=== PATIENT | male | born 1950 | race Caucasian/White ===

== ENCOUNTER 2016-09-25 18:38 | Emergency (ER) | payer OTHER, BC ==
[2016-09-25 18:47] VITALS: BP 140/67
[2016-09-25] MEDS ORDERED: methylPREDNISolone 125 MG* 2 ML VIAL IM ONE (19:01)
[2016-09-25] MEDS ORDERED: diPHENhydraMINE PO* 50 MG PO ONE (19:02)
[2016-09-25] MEDS ORDERED: Famotidine TAB* 20 MG PO ONE (19:02)
--- NOTE | 2016-09-25 19:51 | UC ---
Skin Complaint HPI - HPI Summary HPI Summary: YELLOW JACKET STINGS TO RIGHT HAND TWO HOURS MILL HAND, WITH RIGHT HAND SWELLING. NO THROAT TIGHTNEING. NO SOB. NO CHEST PAIN. NO LIP SWELLING. FULL ROM IN RIGHT WRIST AND HAND. - History of Current Complaint Chief Complaint: UCAllergicReaction Time Seen by Provider: 09/25/16 18:39 Stated Complaint: YELLOW JACKET STING Hx Obtained From: Patient Onset/Duration: Sudden Onset, Lasting Hours, Still Present Skin Exposure Onset/Duration: Hours Ago Onset Severity: Mild Current Severity: Moderate Pain Intensity: 4 Pain Scale Used: 0-10 Numeric Location: Hand (Right) Character: Swelling, Pruritus, Redness Aggravating: Touch Alleviating: Nothing Associated Signs & Symptoms: Positive: Rash. Negative: Nausea, Vomiting, Fever , Chills, Cough, Wheezing, Chest Pain, Hoarseness, Throat Tightening, Syncope, Drainage, Tenderness, Red Streaks, Joint Swelling Related History: Insect Bite/Sting, Possible Reaction to: Insect - Allergy/Home Medications Allergies/Adverse Reactions: Allergies Allergy/AdvReac Type Severity Reaction Status Date / Time PETROLEUM BASED CHEMICAL Allergy Severe Rash Uncoded 09/14/15 21:44 RUST INHIBITOR CHEMICAL Allergy Severe Rash Uncoded 09/14/15 21:44 Home Medications: Home Medications Losartan TAB* [Cozaar TAB*] 50 mg PO DAILY 09/25/16 [History Confirmed 09/25/16] Review of Systems Constitutional: Negative Skin: Rash - RIGHT HAND Eyes: Negative ENT: Negative Respiratory: Negative Cardiovascular: Negative Gastrointestinal: Negative Genitourinary: Negative Motor: Negative Neurovascular: Negative Musculoskeletal: Negative Neurological: Negative Psychological: Negative All Other Systems Reviewed And Are Negative: Yes PMH/Surg Hx/FS Hx/Imm Hx Previously Healthy: Yes - Surgical History Surgical History: Yes Surgery Procedure, Year, and Place: DETACHED RETINA, MOLE REMOVAL - Family History Known Family History: Negative: Respiratory Disease - Social History Occupation: Employed Full-time Lives: With Family Alcohol Use: Occasionally Alcohol Amount: WINE Substance Use Type: None Smoking Status (MU): Never Smoked Tobacco Physical Exam Triage Information Reviewed: Yes Appearance: Well-Appearing, No Pain Distress, Well-Nourished Vital Signs: Initial Vital Signs Temp 97.9 F 09/25/16 18:43 Pulse 87 09/25/16 18:43 Resp 18 09/25/16 18:43 BP 140/67 09/25/16 18:43 Pulse Ox 99 09/25/16 18:43 Vital Signs Reviewed: Yes Eye Exam: Normal ENT Exam: Normal ENT: Positive: Normal ENT inspection, Hearing grossly normal, Pharynx normal, TMs normal Dental Exam: Normal Neck exam: Normal Neck: Positive: Supple, Nontender, No Lymphadenopathy Respiratory Exam: Normal Respiratory: Positive: Chest non-tender, Lungs clear, Normal breath sounds, No respiratory distress, No accessory muscle use Cardiovascular Exam: Normal Cardiovascular: Positive: RRR, No Murmur, Pulses Normal Abdominal Exam: Normal Musculoskeletal: Positive: Strength Intact, ROM Intact, Edema @ - RIGHT HAND Neurological Exam: Normal Psychological Exam: Normal Skin: Positive: rashes - ERYTHEMA EDEMA RIGHT HAND/ RIGHT THUMB Course/Dx - Differential Diagnoses - Skin Complaint Differential Diagnoses: Allergic Reaction, Anaphylaxis, Angioedema, Cellulitis, Contact Dermatitis, Systemic Illness, Tick Born Illness, Urticaria - Diagnoses Provider Diagnoses: LOCAL ALLERGIC REACTION RIGHT HAND, BEE STING Discharge - Discharge Plan Condition: Stable Disposition: HOME Patient Education Materials: Insect Bite or Sting (ED) Referrals: Katlin Fontanez MD [Medical Doctor] - Tristin Dill MD [Primary Care Provider] - Additional Instructions: BENADRYL PO 50mg BID FOR FIVE DAYS. Images Hands: 1 - EDEMA ERYTHEMA S/P BEE STING
== END 2016-09-25 19:35 | disposition home or self-care (01) ==
LOC: UCEAST 18:38
DX: T63.441A Toxic effect of venom of bees, accidental (unintentional), initial encounter (principal)
CPT/HCPCS: 96372; 99212; A9270-GY; G0463; J2930

== ENCOUNTER 2018-03-13 11:03 | Observation (INO) | payer OTHER, BC ==
[~2018-03-13 11:03] MED LIST: NS 0.9% 1000 ML* 1,000 ML IV ONE
--- NOTE | 2018-03-13 11:07 | ED ---
Neurological HPI - HPI Summary HPI Summary: This pt is a 67 y/o male [facility] c/o left sided weakness and tingling. Pt reports he was at a shelter green party when he stood up and suddenly he felt "unbalanced" at around 09:45. He states he was tripping over things and had left sided weakness and tingling. Pt notes weakness and tingling lasted for 15 seconds and spontaneously resolved. Per EMS, pt did walk to the ambulance without difficulty. Denies chest pain, SOB, nausea, vomiting. PMHx: HTN. FHx of CVA in his sister. Denies tobacco, drug, and alcohol use. - History of Current Complaint Stated Complaint: CODE FAITH Time Seen by Provider: 03/13/18 11:03 Hx Obtained From: Patient Onset/Duration: Sudden Onset, Resolved Timing: Sudden Onset Onset Severity: Moderate Current Severity: Mild Neurological Deficit Location: LUE, LLE Character: Weak, Numbness/Tingling, Motor Weakness Aggravating: Nothing Alleviating: Spontanious Resolution Associated Signs and Symptoms: Positive: Unsteady Gait - feeling unbalanced, Weakness. Negative: Pain, Nausea/Vomiting, Fever, Chest Pain, Shortness of Breath - Allergy/Home Medications Allergies/Adverse Reactions: Allergies Allergy/AdvReac Type Severity Reaction Status Date / Time PETROLEUM BASED CHEMICAL Allergy Severe Rash Uncoded 09/14/15 21:44 RUST INHIBITOR CHEMICAL Allergy Severe Rash Uncoded 09/14/15 21:44 PMH/Surg Hx/FS Hx/Imm Hx Endocrine/Hematology History: Denies: Hx Diabetes Cardiovascular History: Reports: Hx Hypertension Denies: Hx Coronary Artery Disease - Surgical History Surgery Procedure, Year, and Place: DETACHED RETINA, MOLE REMOVAL - Family History Known Family History: Negative: Respiratory Disease Family History: Sister with CVA. Liver CA. - Social History Alcohol Use: Occasionally Alcohol Amount: WINE Substance Use Type: Reports: None Smoking Status (MU): Never Smoked Tobacco Review of Systems Negative: Fever, Chills Negative: Chest Pain Negative: Shortness Of Breath Negative: Vomiting, Nausea Positive: Weakness - on the left, Paresthesia - on the left All Other Systems Reviewed And Are Negative: Yes Physical Exam - Summary Physical Exam Summary: VITAL SIGNS: Reviewed. GENERAL: Patient is a well-developed and nourished male who is lying comfortable in the stretcher. Patient is not in any acute respiratory distress. HEAD AND FACE: No signs of trauma. No ecchymosis, hematomas or skull depressions. No sinus tenderness. EYES: PERRLA, EOMI x 2, No injected conjunctiva, no nystagmus. EARS: Hearing grossly intact. Ear canals and tympanic membranes are within normal limits. MOUTH: Oropharynx within normal limits. NECK: Supple, trachea is midline, no adenopathy, no JVD, no carotid bruit, no c- spine tenderness, neck with full ROM. CHEST: Symmetric, no tenderness at palpation LUNGS: Clear to auscultation bilaterally. No wheezing or crackles. CVS: Regular rate and rhythm, S1 and S2 present, no murmurs or gallops appreciated. ABDOMEN: Soft, non-tender. No signs of distention. No rebound, no guarding, and no masses palpated. Bowel sounds are normal. EXTREMITIES: FROM in all major joints, no edema, no cyanosis or clubbing. NEURO: Alert and oriented x 3. Speech is normal and follows commands. Pt is ataxic. SKIN: Dry and warm GCS: 15 Triage Information Reviewed: Yes Vital Signs On Initial Exam: Initial Vitals Temp Pulse Resp BP Pulse Ox 97.8 F 89 19 159/79 99 03/13/18 11:04 03/13/18 11:04 03/13/18 11:04 03/13/18 11:04 03/13/18 11:04 Vital Signs Reviewed: Yes Diagnostics - Laboratory Result Diagrams: 03/14/18 05:53 03/14/18 05:53 Lab Statement: Any lab studies that have been ordered have been reviewed, and results considered in the medical decision making process. - Radiology Chest XR Radiology Interpretation Completed By: Radiologist Summary of Radiographic Findings: IMPRESSION: No active cardiopulmonary disease. Dr. Mondragon has reviewed this report. - CT Brain CT CT Interpretation Completed By: Radiologist Summary of CT Findings: IMPRESSION: No evidence for gross acute infarct, mass effect or hemorrhage. Dr. Mondragon has reviewed this report. - EKG 11:13 Cardiac Rate: NL - 90 bpm EKG Rhythm: Sinus Rhythm Summary of EKG Findings: No ST elevations. Normal axis. NIH Scale - NIH Scale Level of Consciousness: Alert/Keenly Responsive Ask Patient the Month and His/Her Age: Both Correct Ask Pt to Open/Close Eyes and Broadcast Traffic Coordinator/Release Non-Paretic Hand: Both Correctly Best Gaze (Only Horizontal Eye Movement): Normal Visual Field Testing: No Visual Loss Facial Paresis-Pt to Smile & Close Eyes or Grimace Symmetry: Normal/Symmetrical Motor Function - Right Arm: No Drift-Holds 10 Seconds Motor Function - Left Arm: No Drift-Holds 10 Seconds Motor Function - Right Leg: No Drift-Holds 10 Seconds Motor Function - Left Leg: No Drift-Holds 10 Seconds Limb Ataxia-Must be out of Proportion to Weakness Present: Present in One Limb Sensory (Use Pinprick to Test Arms/Legs/Trunk/Face): Normal Best Language (Describe Picture, Name Items): No Aphasia Dysarthria (Read Several Words): Normal Extinction and Inattention: No Abnormality Total Score: 1 Re-Evaluation - Re-Evaluation First Eval Re-Evaluation Time: 11:14 Change: Improved Comment: The tingling and numbness has resolved. Weakness resolved before arrival to the ED. Pt has ataxia with ambulation. Second Eval Re-Evaluation Time: 11:21 Comment: Dr. Ribeiro, neurologist at bedside. Waiting for radiologist to call for report. Course/Dx - Course Course Of Treatment: MD to door with pt at 10:59. CODE FAITH at 11:01. Brain CT ordered at 11:04. Pt to CT at 11:05. Pt returned from CT at 11:11. Dr. Ribeiro, neurologist, at bedside at 11:21. Radiologist, Dr. Dietz, called at 11:[address] At 12:20, Dr. Ribeiro, neurologist, recommends admission to hospitalist for TIA work up, pt is not a TPA candidate. Assessment/Plan: This pt is a 67 y/o male presenting to [facility] c/o left sided weakness and tingling. Pt reports he was at a shelter green party when he stood up and suddenly he felt "unbalanced" at around 09:45. He states he was tripping over things and had left sided weakness and tingling. Pt notes weakness and tingling lasted for 15 seconds and spontaneously resolved. Per EMS, pt did walk to the ambulance without difficulty. Denies chest pain, SOB, nausea, vomiting. PMHx: HTN. FHx of CVA in his sister. Denies tobacco, drug, and alcohol use. Blood work without any significant abnormality except for slight anemia, sodium 134, glucose 198. Urinalysis is negative for UTI. Head CT impression: Negative for an acute intracranial pathology. Dr. Ribeiro from neurology came and assessed the patient and he believes the patient had a TIA. Therefore the patient is not a candidate for TPA. He recommended for the patient to be admitted to the hospitalist services for a TIA workup. I discussed my physical exam, findings and test results with Dr. Chirinos from the hospitalist services and she agrees to admit patient to her services. Patient is hemodynamically stable, alert and oriented x 3. - Differential Dx Differential Diagnoses Neuro: Positive: Carbon Monoxide Poisoning, Transient Ischemic Attack - Diagnoses Provider Diagnoses: TIA (transient ischemic attack) During the Visit The Following Alert/Code Occurred: Code Faith - at 11:01 - Physician Notifications Discussed Care Of Patient With: Dru Dietz Time Discussed With Above Provider: 11:24 Instructed by Provider To: Other - , radiologist, calls to report negative CT. [12:20] Dr. Ribeiro, neurologist, recommends admission to the hospitalist for TIA work up. [12:29] I discussed pt care with Dr. Chirinos, hospitalist, who accepted the pt for admission. - Critical Care Time Critical Care Time: 30-74 min Discharge - Sign-Out/Discharge Documenting (check all that apply): Patient Departure - Admit to [facility] - Discharge Plan Condition: Stable Disposition: ADMITTED TO [facility] - Billing Disposition and Condition Condition: STABLE Disposition: Admitted to [facility] - Attestation Statements Document Initiated by Narda: Yes Documenting Scribe: Suni Hills Provider For Whom Juan Danielibe is Documenting (Include Credential): Geovani Mondragon MD Scribe Attestation: I, Suni Hills, scribed for Geovani Mondragon MD on 03/14/18 at 0717. Scribe Documentation Reviewed: Yes Provider Attestation: The documentation as recorded by the Suni holguin accurately reflects the service I personally performed and the decisions made by me, Geovani Mondragon MD Status of Scribe Document: Viewed
[2018-03-13 11:17] LABS: ABS Basophils 0.1 10^3/ul (0-0.2); ABS Eosinophils 0.1 10^3/ul (0-0.6); ABS Lymphocytes 2.2 10^3/ul (1.0-4.8); ABS Monocytes 0.5 10^3/ul (0-0.8); ABS Neutrophils 3.7 10^3/ul (1.5-7.7); ABS Nucleated RBC 0 10^3/ul; Eosinophil % 1.9 %; Hematocrit 39 % (42-52); Lymphocyte % 33.7 %; Mean Corpuscular HGB Conc 34 g/dl (31-36); Mean Corpuscular Hemoglobin 30 pg (27-31); Mean Corpuscular Volume 90 fL (80-94); Mean Platelet Volume 7.2 fL (7.4-10.4); Nucleated Red Blood Cells % 0; Platelet Count 211 10^3/ul (150-450); Red Blood Count 4.29 10^6/ul (4.00-5.40); Red Cell Distribution Width 13 % (10.5-15); White Blood Count 6.7 10^3/ul (3.5-10.8)
[2018-03-13 11:26] LABS: INR 0.92 (0.77-1.02)
[2018-03-13 11:27] LABS: Activated Partial Thrombo Time 27.3 seconds (26.0-36.3)
[2018-03-13 11:40] LABS: Albumin 4.2 g/dL (3.2-5.2); Albumin/Globulin Ratio 1.6 (1-3); BUN/Creatinine Ratio 20.8 (8-20); Calcium 9.3 mg/dL (8.6-10.3); EGFR Non-African American 69.7 (>60); Globulin 2.6 g/dL (2-4); HDL Cholesterol 48.8 mg/dL; Potassium 3.7 mmol/L (3.5-5.0); Total Bilirubin 0.6 mg/dL (0.2-1.0); Total Protein 6.8 g/dL (6.4-8.9)
[2018-03-13 12:20] LABS: Urine Appearance Clear; Urine Bilirubin Negative (Negative); Urine Blood Negative (Negative); Urine Color Yellow; Urine Glucose 1+(50 mg/dL) (Negative); Urine Ketones Negative (Negative); Urine Nitrite Negative (Negative); Urine Protein Negative (Negative); Urine Specific Gravity 1.018 (1.010-1.030); Urine Urobilinogen Negative (Negative)
[2018-03-13] MEDS ORDERED: Iohexol 350* (CONTRAST) 500 ML MDV IV ONE (13:03)
[2018-03-13] MEDS ORDERED: Ondansetron INJ* 2 MG/ML VIAL IV PRN (13:09)
[2018-03-13] MEDS ORDERED: Acetaminophen TAB* 325 MG PO PRN (13:09)
[2018-03-13 14:10] LABS: TSH (Thyroid Stimulating Horm) 1.53 mcIU/mL (0.34-5.60)
[2018-03-13 14:16] LABS: Free T4 0.84 ng/dL (0.61-1.12)
[2018-03-13 14:22] LABS: Folate 19.02 ng/mL (>3.99)
--- NOTE | 2018-03-13 14:59 | CONS ---
CC: Dr. Tristin Dill * CONSULTATION REPORT: DATE OF CONSULT: 03/13/18 PRIMARY CARE PHYSICIAN: Dr. Tristin Dill. LOCATION: He is a 67-year-old gentleman, currently in the ER. REASON FOR CONSULT: Code pro, left-sided symptoms. HISTORY OF PRESENT ILLNESS: Mr. Tidwell is a 67-year-old gentleman with a history of hypertension, on losartan at home, and possibly prediabetes, who was in his usual state of health when this morning at around 9:45, he developed acute onset of left-sided arm and leg weakness and tingling. He was at a senior living [facility] when the symptoms suddenly developed. He denied any headache at that time. He denied any facial symptoms. He notes that he does have a chronic "uneven smile." Denied any right-sided focal numbness, tingling, or weakness. At that time, he also denied any chest pain, shortness of breath, recent illnesses. He was brought to the ER for a code pro and arrived within the TPA window. I performed an NIH in the ER, he scored 0. Initially, it was reported that he was some trouble walking. When I stood him up after the NIH stroke scale was done, he was able to walk and ambulate and felt steady. In summary, his symptoms had resolved by the time I examined him in the ER a few minutes after arrival. CT of the head was reviewed. It showed no evidence of any hemorrhage, no evidence of acute infarct. The films were reviewed. Based on the fact that he developed these left-sided symptoms, he was being brought into the hospital for further evaluation and TIA/stroke workup. He denied any problems swallowing or speaking. No nausea or vomiting, no dizziness or ringing in his ears. PAST MEDICAL HISTORY: As noted above, hypertension and prediabetes. He is on losartan at home only. Does not take an aspirin regularly. PAST SURGICAL HISTORY: Detached retina on the right side. MEDICATIONS: Losartan 50 mg daily. ALLERGIES: To PETROLEUM-BASED CHEMICALS and RUST INHIBITOR CHEMICALS. SOCIAL HISTORY: He lives with his . He is a retired metallurgist. He denies any recent tobacco use. He did smoke a pipe in the distant past. He occasionally drinks wine. No illicit substance use. REVIEW OF SYSTEMS: His review of systems in 14-organ systems as noted above. No headache, vision changes, speech difficulties, swallowing difficulties, neck pain, back pain, musculoskeletal aches or pains, joint pain, nausea, vomiting, diarrhea, constipation, dysuria, frequency or urgency, chest pain, dyspnea on exertion or shortness of air, otherwise negative. PHYSICAL EXAM: Vital Signs: His temperature is 97.8, blood pressure 159/79 to 159/74, pulse rate of 87 to 89, respiratory rate of 11 to 19, O2 sats were 99% on room air. In general, he is a well-nourished, well-developed gentleman, lying in his hospital bed. His is at the bedside. He is very pleasant, well dressed, well groomed. HEENT: He is normocephalic, atraumatic. Sclerae are anicteric. He does have a surgical pupil on the right with some clouding of his pupil on the left. Mucous membranes are moist. Oropharynx is clear. Nares are patent. Neck is supple. No thyromegaly or carotid bruits. Chest: Clear to auscultation bilaterally. Cardiovascular: Regular rate and rhythm, without murmurs. Abdomen: Nontender, nondistended. Extremities: No clubbing, cyanosis, or edema. Skin is warm and dry. On neurologic exam, he is awake, alert, and oriented x3. His speech is fluent. There is no dysarthria. Repetition is intact. Recall of recent and remote events is intact. Vocabulary is intact. His mood is dysthymic. Affect is congruent. Cranial Nerves: Pupils: He has a surgical pupil on the right with no reactivity. His left pupil is reactive. Extraocular muscles are intact. Visual rios: He has vision loss in the right eye, otherwise intact. He has no nystagmus, no diplopia, no ptosis. Facial sensation is intact to light touch. His face, he appears to have a mild left lower facial droop, which he says is chronic. Hearing is intact to finger rub bilaterally. Palate raises symmetrically. Tongue is midline. Sternocleidomastoid, trapezius 5/5. His motor exam, he is 5 /5 throughout. There is no drift in all 4 extremities. Tone and bulk are both normal. Sensation is intact to light touch and pinprick. There is no double simultaneous extinguishing, no neglect. DTRs are 2+ and symmetric in the upper and lower extremities, with trace ankles. Eoatln-os-yylc, rapid alternating movements are intact. Raeu-dd-mjov is intact. No tremors are present, resting or intention. Gait is slightly wide based, but steady. He is able to walk backwards and forwards. He had some mild difficulty with tandem, but was able to do it. DIAGNOSTIC STUDIES/LAB DATA: Lab work includes a white count of 6.7, hemoglobin of 13, hematocrit of 39. INR of 0.92, PTT of 27.3. Sodium of 134, glucose of 198, lactic acid of 1.6. LDL cholesterol 91, HDL 48.8, triglycerides 129. Troponin 0.00. Urine, 1+ glucose. Imaging: He had an electrocardiogram, normal sinus rhythm. He had a chest x-ray. No active cardiopulmonary disease. He had a brain CT which showed no acute stroke or hemorrhage or mass effect. ASSESSMENT AND PLAN: Mr. Tidwell is a 67-year-old gentleman with a risk factor of hypertension and "prediabetes" who was in his usual state of health when he developed sudden onset of left arm and leg weakness and tingling at around 9:45 in the morning. He arrived within the TPA window, NIH stroke scale at the time of his arrival was 0. Initially reported ataxia, but he was able to ambulate on our examination. It was decided that he was not a TPA candidate, but that he likely suffered either a TIA or small stroke. The plan is to admit him for further workup including an MRI of the brain, CT angiogram of the head and neck , echocardiogram with bubble study. We will check some blood work, hydrate him , and keep his blood pressure on the high end for now. If there is no evidence of stroke, we can start to normalize his blood pressure. We would monitor him for diabetes, check a hemoglobin A1c. We would monitor him on telemetry for any evidence of atrial fibrillation and will likely get a 30-day monitor as an outpatient if no source of stroke is found. He has been started on an aspirin and Plavix. He will continue the Plavix for 30 days at which point he will continue on the aspirin. His goal LDL should be less than 70. At this point, I would start him on a statin medication as well. At this point, he is back to his baseline and we will watch him closely in the hospital. If his workup is negative, he can likely go home tomorrow with possible adjustments in his blood pressure medication. I will continue to follow him closely, make recommendations as necessary. Thank you for the opportunity to participate in the care of this very interesting patient. [id number]/[facility] #: [id number] IZZY
[2018-03-13] MEDS: Clopidogrel TAB* 75 MG PO SCH (15:28)
--- NOTE | 2018-03-13 16:39 | ECHO ---
Patient: ANGELI JOSE [facility] Rec#: [id number] : 1950 Date: 03/13/2018 Age: 67y Height: 168 cm / 66.1 in Weight: 78.1 kg / 172.1 lbs Sex: M BSA: 1.88 Room#: [facility] Admit Date#: 03/13/2018 Type: Inpatient Referring: Vj Sun Reading: Gal Mcguire MD Barrel Turner: Andreia Chou RDCS CC: Tristin Dill MD Transthoracic Echocardiogram Indication: TIA BP: 127/78 HR: 93 Rhythm: NSR Findings History: HTN, pipe/cigar smoker. Technical Comments: The study quality is fair. Completed at 1550. Left Ventricle: The left ventricular chamber size is normal. There is no left ventricular hypertrophy. Global left ventricular wall motion and contractility are within normal limits. Left ventricular systolic function is at the lower limits of normal. The estimated ejection fraction is 50-55%. There is septal flattening of the interventricular septum consistent with right ventricular volume or pressure overload. Abnormal left ventricular diastolic function is observed. Left Atrium: The left atrial chamber size is normal. Right Ventricle: Moderator Band present. The right ventricle is mildly dilated. The right ventricle wall thickness is mildly increased. The right ventricular global systolic function is normal. Right Atrium: The right atrium is mildly dilated. Interatrial septum appears intact without evidence of shunting. The bubble study is negative. A patent foramen ovale is not demonstrated with color Doppler and agitated contrast. Aortic Valve: The aortic valve is trileaflet. The aortic valve leaflets are mildly thickened. There is a trace of aortic regurgitation. There is no evidence of aortic stenosis. Mitral Valve: The mitral valve leaflets are mildly thickened. There is a trace of mitral regurgitation. There is no evidence of mitral stenosis. Tricuspid Valve: The tricuspid valve leaflets are normal. There is mild to moderate tricuspid regurgitation. The right ventricular systolic pressure is estimated at 37 mmHg. There is evidence of mild pulmonary hypertension. There is no tricuspid stenosis. Pulmonic Valve: The pulmonic valve appears normal. There is a trace pulmonic regurgitation. There is no pulmonic stenosis. Pericardium: There is no significant pericardial effusion. Aorta: There is no dilatation of the ascending aorta. There is no dilatation of the aortic arch. The aortic root is normal in size. Pulmonary Artery: The main pulmonary artery appears normal. Venous: The inferior vena cava appears normal in size. There is a greater than 50% respiratory change in the inferior vena cava dimension. Contrast: Intravenous agitated saline contrast was used to assess intracardiac shunting. Images 88 and 89. Summary: There was not any prior study for comparison. Conclusions Global left ventricular wall motion and contractility are within normal limits. Left ventricular systolic function is at the lower limits of normal. The estimated ejection fraction is 50-55%. There is septal flattening of the interventricular septum consistent with right ventricular volume or pressure overload. The right ventricle wall thickness is mildly increased. A patent foramen ovale is not demonstrated with color Doppler and agitated contrast. There is a trace of aortic regurgitation. There is no evidence of aortic stenosis. There is a trace of mitral regurgitation. There is mild to moderate tricuspid regurgitation. There is evidence of mild pulmonary hypertension. There is no significant pericardial effusion. Measurements Name Value Normal Range RVIDd (AP) 2D 3.2 cm (0.9 - 2.6) RVDdMajor (2D) 4.7 cm (2.2 - 4.4) RAd ISD 4CH 5.2 cm (3.4 - 4.9) RA (A4C)W 4.7 cm (2.9 - 4.6) IVSd (2D) 0.9 cm (0.6 - 1) LVPWd (2D) 1 cm (0.6 - 1) LVIDd (2D) 5.1 cm (3.6 - 5.4) LVIDs (2D) 3.1 cm - LV FS (2D) 38 % (25 - 45) Aortic Annulus 2.2 cm (1.4 - 2.6) Ao root diameter (2D) 3.3 cm (2.1 - 3.5) Ascending Ao 3.1 cm (2.1 - 3.4) Aortic arch 2.2 cm (1.8 - 3.4) LA dimension (AP) 2D 3.3 cm (2.3 - 3.8) LAd ISD 4CH 4.6 cm (2.9 - 5.3) LA ISD 4CH W 4.1 cm (2.5 - 4.5) Name Value Normal Range LA ESV BP (A/L) index 27 ml/m2 - Name Value Normal Range MV E-wave Vmax 0.8 m/sec - MV deceleration time 190 msec - MV A-wave Vmax 0.7 m/sec - MV E:A ratio 1.2 ratio - LV septal e' Vmax 0.07 m/sec - LV lateral e' Vmax 0.08 m/sec - LV E:e' septal ratio 11.4 ratio - LV E:e' lateral ratio 10 ratio - Name Value Normal Range AV Vmax 1.5 m/sec - AV VTI 27 cm - AV peak gradient 9 mmHg - AV mean gradient 5 mmHg - LVOT Vmax 1.1 m/sec - LVOT VTI 21 cm - LVOT peak gradient 5 mmHg - LVOT mean gradient 2 mmHg - JERMAINE Vmax 0.7 m/sec - Name Value Normal Range TR Vmax 2.9 m/sec - TR peak gradient 34 mmHg - RAP 3 mmHg - RVSP 37 mmHg - IVC diameter 1.5 cm - Name Value Normal Range PV Vmax 1.1 m/sec - PV peak gradient 5 mmHg -
--- NOTE | 2018-03-13 18:18 | HP ---
CC: Dr. Tristin Dill; Dr. Benjy Ribeiro * ADMISSION HISTORY AND PHYSICAL: DATE OF ADMISSION: 03/13/18 PRIMARY CARE PROVIDER: Dr. Tristin Dill. MY ATTENDING WHILE IN HOSPITAL: Dr. Annette Chirinos.* (DICTATED BY MEGHNA BEATTY) CONSULTING NEUROLOGIST: Dr. Benjy Ribeiro. CHIEF COMPLAINT: Left-sided weakness and numbness. HISTORY OF PRESENT ILLNESS: Mr. Tidwell is a 67-year-old male with past medical history significant only for hypertension, who presents to the emergency department after approximately 9:45 this morning. While he was at work, he was reaching out to shake the hand of a colleague and suddenly felt like his left side was going to give out. He described his sensation like was going to trip, but there was nothing there. He also had some numbness in his leg. This lasted per his report less than a minute. He did not fall. He did not pass out. He had no involuntary movements. He had feelings of unsteadiness , but no presyncope and no macarena vertigo. The patient has no recent illnesses, no recent changes to his medications. The patient has never had anything like this happen to him before. The patient denies fevers, chills, nausea, vomiting , abdominal pain, diarrhea, dysuria. The patient denies chest pain, shortness of breath, or any feelings of palpitations. The patient has never had feelings of palpitations. The patient is no diagnosed history of cardiac arrhythmia. The patient was brought into the hospital via ambulance after he drove home to see his . The patient has been asymptomatic since this time. There was some concern about the patient having repeat symptoms while in the ambulance, but the patient denies that this happened. Due to concern for transient ischemic attack, we are asked to evaluate the patient for admission. PAST MEDICAL HISTORY: Hypertension, BPH, retinal detachment. PAST SURGICAL HISTORY: Retinal fixation. MEDICATIONS: Losartan 50 mg p.o. daily. ALLERGIES: Occupational based exposures to PETROLEUM BASED CHEMICALS, RUST INHIBITOR CHEMICALS. FAMILY HISTORY: The patient's mother of stroke at age 98. She was in coma for approximately 1 month before she . The patient's father of complications of a tracheostomy, which was placed as a complication of smoking. The patient's sister also of a stroke while she had active kidney and liver malignancy. The patient's daughter has been diagnosed with some stage of cervical cancer, which was treated, has psychiatric disorders including bulimia and is otherwise healthy. The patient has 2 other children, which are healthy. SOCIAL HISTORY: The patient smoked for several years approximately 35 years ago. He is unable quantify certain amount, never smoked cigarettes, only a pipe and cigars. The patient drinks approximately 2 onuses of red wine at night. The patient does not have illicit drug use. The patient works as a [employer]. The patient is and has 3 children. The patient' s surrogate decision maker will be his , Kecia Tidwell. REVIEW OF SYSTEMS: A 14-point review of systems was reviewed and is negative except as above in the HPI. PHYSICAL EXAMINATION GENERAL: The patient is a 67-year-old male, who appears stated age and is sitting comfortably in bed, in no acute distress. VITAL SIGNS: Temperature 97.5, pulse rate 89, respiratory rate 19, oxygen saturation 99% on room air, blood pressure 159/79. HEENT: Head: Normocephalic, atraumatic. Sclerae anicteric. No conjunctival injection. Nasal mucosa moist. Oral mucosa moist. No pharyngeal erythema, discharge, or exudate. NECK: Supple, nontender. No lymphadenopathy. No carotid bruits auscultated. No JVD. RESPIRATORY: Clear to auscultation bilaterally. No wheezes, rales, or rhonchi. Good air exchange bilaterally. CARDIAC: Regular rate and rhythm. No clicks, murmurs, gallops, or rubs. Pulses 2+ in bilateral dorsalis pedis, posterior tibialis, and radial areas ABDOMEN: Soft, nontender, nondistended. Bowel sounds present normoactive in all 4 quadrants. No hepatosplenomegaly. No abdominal bruits auscultated. No hepatojugular reflux. GENITOURINARY: No suprapubic or CVA tenderness. SKIN: Clean, dry, intact. No rash. NEUROLOGIC: Cranial nerves II through XII are intact. No focal deficits. Cerebral testing performed without difficulty. Reflexes 2+ in bilateral biceps , patella, and Achilles areas. Babinski is downgoing bilaterally. Normal gait. PSYCHIATRIC: Pleasant, cooperative. DIAGNOSTIC STUDIES/LAB DATA: White blood cell count 6.7, hemoglobin 13.0, platelet count 211. INR 0.92. APTT 27.3. Sodium 134, potassium 3.7, chloride 103, carbon dioxide 25, anion gap 6, BUN 22, creatinine 1.06, glucose 198, lactic acid 1.6, calcium 9.3, bilirubin 0.6, AST 30, ALT 27, alkaline phosphatase 95, troponin I of 0.00, protein 7.8, albumin 4.2, globulin 2.6, triglycerides 129, cholesterol 166. LDL cholesterol 91, HDL cholesterol 48.8. Urine shows 1+ glucose. No other abnormalities. Studies: Brain CT read as no evidence for acute infract, mass effect, or hemorrhage. Chest x-ray read as no acute cardiopulmonary abnormality. Electrocardiogram shows normal sinus rhythm. No blocks or hypertrophy. Rate of 90. Normal axis. No ST segment abnormality, hypertrophy enlargement, rate of 90, QTc of 443. ASSESSMENT AND PLAN: Mr. Tidwell is a 67-year-old male with past medical history significant for only hypertension, presents to the emergency department after less than a minute of unsteadiness and weakness, numbness, and tingling in his left side. The patient likely had a transient ischemic attack and was admitted to the hospital for risk stratification with CTA, MRI, and other imaging studies for secondary prevention to help clarify his risk for recurrent stroke. 1. Transient ischemic attack. The patient had classic signs of TIA. The patient's symptoms are currently resolved and NIH stroke scale is 0. The patient was seen in consultation by Dr. Duglas Ribeiro of Neurology, who recommended admission to the hospital for workup for TIA. The patient will have a CTA of his head and MRI of his brain, transthoracic echocardiogram with a bubble study. The patient may need to be transferred if he has symptomatic carotid stenosis or other large vessel occlusion causing his TIA; however, this is pending the CTA results. The patient had a lipid profile, which showed an LDL cholesterol of 91. Statin use has been discussed with the patient and he will consider being started on a statin. Atorvastatin 40 mg daily has been prescribed. The patient will be started on aspirin and Plavix to continue for 30 days. The patient has no signs of atrial fibrillation, will be monitored on telemetry and have an echocardiogram as above. The patient will have a vitamin B12, TSH, hemoglobin A1c, and folate level per cardiology. 2. Hypertension. The patient will have permissive hypertension. The patient' s losartan will be held. The patient's blood pressure is currently 159/74. 3. FEN: The patient will have heart healthy diet without caffeine when he is able to pass swallow evaluation. The patient had 1 liter fluid while in the hospital. While in the emergency department, the patient was on normal fluids. 4. Code status: Patient would like to be a full code. 5. Disposition: The patient will be admitted to observation. 6. DVT prophylaxis. The patient will have SCDs as he has a moderate risk, but is very concerned about his bleeding risk while in the dual antiplatelet therapy , so a third anticoagulant will not be added at this time. TIME SPENT: Approximately 60 minutes spent on the admission of this patient, 30 of which was spent in [id number] with the patient obtaining history and physical and discussion of treatment plan. Plan was discussed with my attending, Dr. Annette Chirinos, she is in agreement. MEGHNA BEATTY [id number]/TONI #: [id number] IZZY
[2018-03-14 06:16] LABS: ABS Basophils 0 10^3/ul (0-0.2); ABS Eosinophils 0.2 10^3/ul (0-0.6); ABS Lymphocytes 2.8 10^3/ul (1.0-4.8); ABS Monocytes 0.7 10^3/ul (0-0.8); ABS Neutrophils 4.9 10^3/ul (1.5-7.7); ABS Nucleated RBC 0 10^3/ul; Eosinophil % 2.3 %; Hematocrit 38 % (42-52); Hemoglobin 12.9 g/dl (14.0-18.0); Mean Corpuscular HGB Conc 34 g/dl (31-36); Mean Corpuscular Hemoglobin 31 pg (27-31); Mean Corpuscular Volume 90 fL (80-94); Nucleated Red Blood Cells % 0.1; Platelet Count 190 10^3/ul (150-450); Red Blood Count 4.22 10^6/ul (4.00-5.40); Red Cell Distribution Width 13 % (10.5-15); White Blood Count 8.7 10^3/ul (3.5-10.8)
[2018-03-14 06:32] LABS: BUN/Creatinine Ratio 17.6 (8-20); Calcium 8.8 mg/dL (8.6-10.3); EGFR Non-African American 83.1 (>60)
[2018-03-14] MEDS: Clopidogrel TAB* 75 MG PO SCH (08:12)
--- NOTE | 2018-03-14 08:23 | PN ---
Subjective Date of Service: 03/14/18 Length of Stay: 1 Days Neurology is following Mr. Tidwell for the evaluation and management of TIA Interval History: CC- TIA Pt examined today at the bedside. He states he is feeling better. He denies chest pain and denies sob. States he has not had any weakness to upper or lower extremities. Denies any dizziness or trouble with gait since being admitted. Denies visual changes and denies headache. ROS-denies fever, denies chills, denies lightheadedness, denies chest pain, denies sob, denies abdominal pain, denies nausea, denies vomiting, denies hare, denies vision changes, review of 11 systems completed all others negative, Objective Active Medications: Acetaminophen (Tylenol Tab*) 650 mg PO Q6H PRN Aspirin (Aspirin Ec Tab*) 81 mg PO DAILY REID Atorvastatin Calcium (Lipitor*) 20 mg PO 1700 REID Clopidogrel Bisulfate (Plavix Tab*) 75 mg PO DAILY REID Losartan Potassium (Cozaar Tab*) 50 mg PO DAILY REID Ondansetron HCl (Zofran Inj*) 4 mg IV Q6H PRN Vital Signs 03/13/18 03/13/18 03/13/18 11:04 11:13 11:14 Temperature 97.8 F Pulse Rate 89 88 89 Respiratory 19 11 17 Rate Blood Pressure 159/79 159/74 (mmHg) O2 Sat by Pulse 99 99 99 Oximetry 03/13/18 03/13/18 03/13/18 11:43 12:00 12:13 Temperature Pulse Rate Respiratory 24 16 13 Rate Blood Pressure 167/97 120/79 (mmHg) O2 Sat by Pulse Oximetry 03/13/18 03/13/18 03/13/18 12:43 13:00 13:43 Temperature Pulse Rate 88 Respiratory 17 17 22 Rate Blood Pressure 139/88 127/78 (mmHg) O2 Sat by Pulse 97 Oximetry 03/13/18 03/13/18 03/13/18 13:54 14:15 19:17 Temperature 98.5 F 98 F 98.0 F Pulse Rate 88 91 84 Respiratory 22 16 16 Rate Blood Pressure 127/78 160/80 128/82 (mmHg) O2 Sat by Pulse 97 100 99 Oximetry 03/13/18 03/13/18 03/13/18 19:33 20:00 20:03 Temperature 97.9 F Pulse Rate 75 98 Respiratory 16 20 Rate Blood Pressure 138/71 148/87 (mmHg) O2 Sat by Pulse 97 95 Oximetry 03/13/18 03/14/18 03/14/18 23:45 03:44 07:31 Temperature 98.5 F 97.8 F 98.1 F Pulse Rate 73 60 74 Respiratory 16 20 20 Rate Blood Pressure 135/70 108/67 124/79 (mmHg) O2 Sat by Pulse 97 95 96 Oximetry 03/14/18 07:36 Temperature Pulse Rate Respiratory Rate Blood Pressure (mmHg) O2 Sat by Pulse 96 Oximetry Intake and Output Last 24 Hours 03/12/18 03/13/18 03/14/18 03/15/18 06:59 06:59 06:59 06:59 Intake Total 1119 Balance 1119 Weight 165 lb 14.4 oz Intake: IV Fluids 999 Oral 120 Other: # Voids 3 Oxygen Devices in Use Now: None Neurology Exam: General: Awake, Alert, Oriented x3 HEENT: Normocephalic/atraumatic, sclera anicteric, mucous membranes moist Neck: Supple Chest: Clear to auscultation bilaterally Cardiovascular: Regular rate and rhythm without murmurs, rubs, gallops Abdomen: Soft, nontender/nondistended Extremities: No clubbing, cyanosis, or edema Neurological Findings: Awake, Alert, Oriented x3 Speech: fluent without dysarthria, repetition intact Cranial Nerve: PEERL, EOM intact, VFF, no nystagmus, face symmetric bilaterally , facial sensation intact, hearing intact to finger rub bilaterally, palate elevates symmetrically, tongue midline, SCM and Trapezius 5/5. Motor: 5/5 throughout, proximal and distal extremities x4 tone/bulk normal Sensation: intact to LT/PP bilaterally upper and lower extremities Deep Tendon Reflex: 2+ symmetric in the upper/lower extremities, Babinski - down going Finger to nose, rapid alternating movements intact without tremor, no dysdiadochokinesia Gait: intact with good arm swing and stride, Romberg with minimal sway, Result Diagrams: 03/14/18 05:53 03/14/18 05:53 Assessment/Plan 67 y/o male patient presenting to [facility] with complaints of left sided weakness and numbness and tingling associated with an unsteady gait a code finney was called TPA was not given as his NIH stroke scale was 0 TPA not given his symptoms resolved. 1. TIA- His risk factors for TIA are HTN and HLD. HE does not have DM A1C 5.5 and is not a smoker. Tele NSR overnight At this point echo show no PFO, CTA of head and neck and normal also the MRI shows is negative as well. It was discussed with the patient that his LDL is 91 and his goal LDL should be less than 70. We discussed the risk and benefits associated with statin therapy. At this point he would like to try lifestyle modifications with diet changes and exercise. It was discussed should he not reach his goal LDL a statin would be indicated this can be followed with his PCP. I would strive for tight BP control his bp here is 124/70 which is appropriate. I would continued asa and plavix for 30 days and then continue ASA 81 mg lifelong. I would recommend a 30 day event monitor at discharge with PCP to assess for AFIB He is to follow up with neurology in 8-12 weeks. 2. HTN- Bp 124/70 continue losartan 3. HLD- Will stop statin for now. Encouraged lifestyle modifications. Diet and exercise. Follow with PCP Neurology will sign off at this point please feel free call us back with questions or concerns. HE will need follow up with us in 8-12 weeks.
--- NOTE | 2018-03-14 08:51 | PN ---
Progress Note - Progress Note Date of Service: 03/14/18 Note: I interviewed and examined the patient this morning with Mars Mooney NP. We discussed the plan and I agree with the findings and plan outlined in his chart.
[2018-03-14] MEDS ORDERED: Aspirin EC TAB* 81 MG TAB.EC PO SCH (09:00)
[2018-03-14] MEDS ORDERED: Losartan TAB* 25 MG PO SCH (09:00)
[2018-03-14] MEDS ORDERED: Clopidogrel TAB* 75 MG PO SCH (09:00)
[2018-03-14 12:49] VITALS: BP 116/68
[2018-03-14] MEDS ORDERED: Atorvastatin* 40 MG TAB PO SCH (13:09)
[2018-03-14] MEDS ORDERED: Atorvastatin* 20 MG TAB PO SCH (17:00)
== END 2018-03-14 13:10 | disposition home or self-care (01) ==
LOC: ED 11:03 → MEDTELE 13:09
PROVIDERS: ADMIT Internal Medicine; ATTEND Internal Medicine
DX: G45.9 Transient cerebral ischemic attack, unspecified (principal); R53.1 Weakness; R20.0 Anesthesia of skin; I10 Essential (primary) hypertension
CPT/HCPCS: 36415; 70450; 70496; 70498; 70551; 71045; 80048; 80053; 80061; 81003; 82607; 82746; 83036; 83090; 83605; 83735; 84439; 84443; 84484; 85025; 85610; 85730; 86850; 86900; 86901; 93005; 93306; 96361; 96374; 96375; 99284; A9270-GY; G0378; Q9967